=== PATIENT | male | born 1955 | race Hispanic/Latino ===

== ENCOUNTER 2023-12-02 00:30 | Observation (INO) | payer BC ==
[2023-12-02] MEDS ORDERED: PIPERACIL/TAZO 3.375 GM VIAL IV ONE (02:21)
[2023-12-02] MEDS ORDERED: NA CHLORIDE 0.9% 100 ML ONE (02:21)
[2023-12-02 02:39] LABS: Absolute Basophils 0.1 K/uL (0-0.5); Absolute Eosinophils 0.2 K/uL (0-0.5); Absolute Lymphocytes (CBC) 0.9 K/uL (0.7-4.9); Absolute Monocytes 0.5 K/uL (0.1-1.3); Absolute Neutrophil 3.6 K/uL (1.8-8.0); Basophils % 1.6 % (0-1.3); Eosinophils % 4.3 % (0-4.4); Hematocrit 39.5 % (39.6-49.0); Hemoglobin 13.2 g/dL (13.6-17.9); Lymphocytes % 17.6 % (15.3-44.8); MCH 31.1 pg (27.0-35.0); MCHC 33.5 g/dL (32.0-36.0); MPV 7.9 fL (7.6-11.3); Monocytes % 8.8 % (3.3-12.3); Neutrophils % 67.7 % (41.7-73.7); PT Prothrombin Time 11.2 SECONDS (9.4-12.5); Platelets 204 thou/uL (152-406); RBC Red Blood Cell Count 4.24 M/uL (4.33-5.43); Red Cell Distribution Width 13.8 % (12.1-15.2)
[2023-12-02 02:44] LABS: Specific Gravity 1.026 (1.005-1.030); Urine Bilirubin NEGATIVE (Negative); Urine Blood Negative (Negative); Urine Clarity Clear (Clear); Urine Color Light-Yellow (Yellow); Urine Glucose 4+ (Over) (Negative); Urine Ketones NEGATIVE (Negative); Urine Microscopic Reflex YN NO UMIC; Urine Nitrite NEGATIVE (Negative); Urine Protein NEGATIVE (Negative); Urine Urobilinogen Normal (Normal); Urine pH 5.5 (5.0-7.0)
[2023-12-02 02:56] LABS: ALT/SGPT 33 U/L (16-61); AST/SGOT 21 U/L (15-37); Albumin 3.6 g/dL (3.4-5.0); Alkaline Phosphatase 93 U/L (45-117); Anion Gap 13.2 mEq/L (5.0-15.0); BUN Blood Urea Nitrogen 28 mg/dL (7-18); Bicarbonate 25 mEq/L (21-32); Bilirubin Total 0.5 mg/dL (0.2-1.0); Globulin 3.5 g/dL (2.3-3.5); Glomerular Filtration Rate 60 ml/min (=/>90); Glucose Level 108 mg/dL (74-106); NT PRO-BNP 52 pg/mL (<125); Potassium 4.2 mEq/L (3.5-5.1); Protein, Total 7.1 g/dL (6.4-8.2); Sodium Level 140 mEq/L (136-145); Troponin High Sensitivity 7.9 pg/mL (<58.9)
[2023-12-02 02:57] LABS: Bilirubin Direct < 0.2 mg/dL (0-0.2); Bilirubin Indirect, Calculated 0.3 mg/dL (0.2-0.8)
--- NOTE | 2023-12-02 03:00 | ER ---
Nurse's Notes [facility] Name: Elton Paz Age: 68 yrs Sex: Male : 1955 Arrival Date: 12/02/2023 Time: 00:30 Bed 8 Private MD: Diagnosis: Cellulitis of left lower limb;Type 2 diabetes mellitus with hyperglycemia;Synovial cyst of popliteal space [Hackett], left knee Presentation: 12/01 00:48 Chief complaint: Patient states: I was bit on my left leg by some kind of bug. I have a jb4 rash and its been itching. Now I have pain in my knee cap that radiates to my groin, and my left leg is swollen. Coronavirus screen: At this time, the client does not indicate any symptoms associated with coronavirus-19. Ebola Screen: No symptoms or risks identified at this time. Initial Sepsis Screen: Does the patient meet any 2 criteria? No. Patient's initial sepsis screen is negative. Does the patient have a suspected source of infection? No. Patient's initial sepsis screen is negative. Risk Assessment: Do you want to hurt yourself or someone else? Patient reports no desire to harm self or others. Onset of symptoms was December 02, 2023. Transition of care: patient was not received from another setting of care. 00:48 Method Of Arrival: Ambulatory jb4 00:48 Acuity: OSEI 3 jb4 Triage Assessment: 00:49 General: Appears in no apparent distress. comfortable, Behavior is calm, cooperative, jb4 appropriate for age. Pain: Complains of pain in left knee Pain radiates to groin Pain currently is 7 out of 10 on a pain scale. Quality of pain is described as pressure, sharp. EENT: No signs and/or symptoms were reported regarding the EENT system. Neuro: Level of Consciousness is awake, alert, obeys commands, Oriented to person, place, time, situation. Cardiovascular: Patient's skin is warm and dry. Respiratory: Airway is patent Respiratory effort is even, unlabored, Respiratory pattern is regular, symmetrical. Historical: - Allergies: 00:49 No Known Allergies; jb4 - PMHx: 00:49 DM; HTN; High cholesterol; jb4 - PSHx: 00:49 hernia repair; jb4 - Immunization history:: Adult Immunizations up to date. - Infectious Disease History:: Denies. - Social history:: Smoking status: Patient denies any tobacco usage or history of. Screenin:04 [facility] ED Fall Risk Assessment (Adult) History of falling in the last 3 months, pc2 including since admission No falls in past 3 months (0 pts) Confusion or Disorientation No (0 pts) Intoxicated or Sedated No (0 pts) Impaired Gait No (0 pts) Mobility Assist Device Used No (0 pt) Altered Elimination No (0 pt) Score/Fall Risk Level 0 - 2 = Low Risk Oriented to surroundings, Maintained a safe environment, Hourly rounding (assess needs \T\ fall precautionary measures) done. Abuse screen: Denies threats or abuse. Denies injuries from another. Nutritional screening: No deficits noted. Tuberculosis screening: No symptoms or risk factors identified. Assessment: 02:00 General: Appears in no apparent distress. uncomfortable, well groomed, Behavior is pc2 calm, cooperative, appropriate for age. 02:00 Pain: Complains of pain in left bush and left calf and left leg and left knee. Neuro: pc2 Level of Consciousness is awake, alert, obeys commands, Oriented to person, place, time, situation. Cardiovascular: Patient's skin is warm and dry. Respiratory: Airway is patent Trachea midline Respiratory effort is even, unlabored, Respiratory pattern is regular, symmetrical. GI: Abdomen is round non-distended. : No signs and/or symptoms were reported regarding the genitourinary system. : Urine is clear. EENT: No signs and/or symptoms were reported regarding the EENT system. Derm: Skin is dry, Skin is red, Skin temperature is warm redness and swelling to left lower leg. thinks he may have gotten bit by something while in tall wet grass working. warm to touch Reports itching, since 2 days ago. Musculoskeletal: Circulation, motion, and sensation intact. Swelling present in left leg patient is able to bear weight and ambulates with steady gait. 03:00 Reassessment: No changes from previously documented assessment. Patient and/or family pc2 updated on plan of care and expected duration. Pain level reassessed. 04:00 Reassessment: Patient appears in no apparent distress at this time. Patient and/or pc2 family updated on plan of care and expected duration. Pain level reassessed. Patient is alert, oriented x 3, equal unlabored respirations, skin warm/dry/pink. Vital Signs: 00:48 BP 114 / 82; Pulse 72; Resp 16; Temp 98.2(TE); Pulse Ox 96% on R/A; Weight 95.25 kg jb4 (R); Height 5 ft. 9 in. (R); Pain 7/10; 03:30 BP 132 / 93; Pulse 61; Resp 18; Pulse Ox 100% on R/A; pc2 04:30 BP 131 / 83; Pulse 68; Resp 16; Temp 98.2; Pulse Ox 99% on R/A; pc2 00:48 Body Mass Index 31.01 (95.25 kg, 175.26 cm) jb4 00:48 Pain Scale: Adult jb4 ED Course: 00:31 Patient arrived in ED. jj6 00:33 Ramone Munoz MD is Attending Physician. jose eduardo 00:49 Triage completed. jb4 00:49 Arm band placed on right wrist. jb4 01:10 XRAY Chest (1 view) In Process Unspecified. EDMS 01:40 Patient has correct armband on for positive identification. Placed in gown. Bed in low pc2 position. Call light in reach. Side rails up X2. Provided Education on: POC and time frame. 01:43 US Extremity Venous W Compression Mauricio In Process Unspecified. EDMS 01:50 Pulse ox on. NIBP on. pc2 02:02 Dara Hare, RN is Primary Nurse. pc2 02:02 Urinalysis w/ reflexes Sent. pc2 02:02 Blood Culture Adult (2) Sent. pc2 02:02 Lactate w/ 2H reflex if indic. Sent. pc2 02:03 Basic Metabolic Panel Sent. pc2 02:03 CBC with Diff Sent. pc2 02:03 LFT's Sent. pc2 02:03 Magnesium Sent. pc2 02:03 NT PRO-BNP Sent. pc2 02:03 PT-INR Sent. pc2 02:03 Troponin HS Sent. pc2 02:25 EKG done, by ED staff, reviewed by Ramone Munoz MD. oe 02:59 Christie Quintero MD is Hospitalizing Provider. jose eduardo 03:38 No provider procedures requiring assistance completed. pc2 05:39 Patient admitted, IV remains in place. bm8 Administered Medications: 02:22 Drug: Piperacillin-Tazobactam IVPB 3.375 grams IVPB once over 60 mins; (mix in NS 100 pc2 mL) Route: IVPB; Infused Over: 60 mins; Site: right antecubital; 03:00 Follow up: IV Status: Completed infusion; IV Intake: 100ml pc2 03:20 Drug: vancoMYCIN IVPB 1 grams IVPB once over 2 hrs Route: IVPB; Infused Over: 2 hrs; pc2 Site: right antecubital; 03:50 Follow up: Response: No adverse reaction; IV Status: Completed infusion; IV Intake: pc2 250ml 03:20 Drug: Lovenox Sub-Q 40 mg Sub-Q once Route: Sub-Q; Site: right lower abdomen; pc2 03:50 Follow up: Response: No adverse reaction pc2 03:28 Drug: diphenhydrAMINE IVP 25 mg IVP once Route: IVP; Site: right antecubital; pc2 03:50 Follow up: Response: No adverse reaction; Marked relief of symptoms pc2 04:40 Drug: vancoMYCIN IVPB 1 grams IVPB once over 2 hrs Route: IVPB; Infused Over: 2 hrs; pc2 Site: right antecubital; 05:38 Follow up: Response: No adverse reaction; IV Status: Infusion continued upon admission; bm8 IV Intake: 100ml Medication: 03:43 VIS not applicable for this client. pc2 Intake: 03:00 IV: 100ml; Total: 100ml. pc2 03:50 IV: 250ml; Total: 350ml. pc2 05:38 IV: 100ml; Total: 450ml. bm8 Outcome: 03:00 Decision to Hospitalize by Provider. jose eduardo 05:37 Patient left the ED. 8 05:37 Admitted to Med/surg accompanied by nurse, via wheelchair, room 210, with chart, [facility] 05:37 Condition: stable 05:37 Instructed on follow up and referral plans. the need for admit, Demonstrated understanding of instructions, follow-up care, medications, Signatures: Dispatcher [employer] EDMS Ramone Munoz MD MD cha Bryson, James, RN RN jb4 Ruy Perez Jennifer jj6 Crow Colbert, RN RN bm8 Dara Hare, RN RN pc2
--- NOTE | 2023-12-02 03:00 | EDPHYS ---
Physician Documentation [facility] Name: Elton Paz Age: 68 yrs Sex: Male : 1955 Arrival Date: 12/02/2023 Time: 00:30 Bed 8 Private MD: Ramone Camara HPI: 12/01 02:54 This 68 yrs old Male presents to ER via Ambulatory with complaints of Leg jose eduardo Swelling, Leg Pain, LEG REDNESS, Fever. 02:54 The patient presents with decreased range of motion, pain, swelling, tenderness. The jose eduardo complaints affect the lateral aspect of left calf, left calf, medial aspect of left calf and left bush. Context: The problem was sustained at home, resulted from bites, the patient can fully bear weight, the patient is able to ambulate. Historical: - Allergies: 00:49 No Known Allergies; jb4 - PMHx: 00:49 DM; HTN; High cholesterol; jb4 - PSHx: 00:49 hernia repair; jb4 - Immunization history:: Adult Immunizations up to date. - Infectious Disease History:: Denies. - Social history:: Smoking status: Patient denies any tobacco usage or history of. ROS: 02:55 Constitutional: Negative for fever, chills, and weight loss, Eyes: Negative for injury, jose eduardo pain, redness, and discharge, ENT: Negative for injury, pain, and discharge, Neck: Negative for injury, pain, and swelling, Cardiovascular: Negative for chest pain, palpitations, and edema, Respiratory: Negative for shortness of breath, cough, wheezing, and pleuritic chest pain, Abdomen/GI: Negative for abdominal pain, nausea, vomiting, diarrhea, and constipation, Back: Negative for injury and pain, : Negative for injury, bleeding, discharge, and swelling, Neuro: Negative for headache, weakness, numbness, tingling, and seizure, Psych: Negative for depression, anxiety, suicide ideation, homicidal ideation, and hallucinations, Allergy/Immunology: Negative for hives, rash, and allergies, Endocrine: Negative for neck swelling, polydipsia, polyuria, polyphagia, and marked weight changes, Hematologic/Lymphatic: Negative for swollen nodes, abnormal bleeding, and unusual bruising, 02:55 MS/extremity: Positive for decreased range of motion, erythema, pain, swelling, tenderness, of the left leg, 02:55 Skin: Positive for cellulitis, swelling, of the left leg, diffusely, Exam: 02:58 Constitutional: This is a well developed, well nourished patient who is awake, alert, jose eduardo and in no acute distress. Head/Face: Normocephalic, atraumatic. Eyes: Pupils equal round and reactive to light, extra-ocular motions intact. Lids and lashes normal. Conjunctiva and sclera are non-icteric and not injected. Cornea within normal limits. Periorbital areas with no swelling, redness, or edema. ENT: Nares patent. No nasal discharge, no septal abnormalities noted. Tympanic membranes are normal and external auditory canals are clear. Oropharynx with no redness, swelling, or masses, exudates, or evidence of obstruction, uvula midline. Mucous membranes moist. Neck: Trachea midline, no thyromegaly or masses palpated, and no cervical lymphadenopathy. Supple, full range of motion without nuchal rigidity, or vertebral point tenderness. No Meningismus. Chest/axilla: Normal chest wall appearance and motion. Nontender with no deformity. No lesions are appreciated. Cardiovascular: Regular rate and rhythm with a normal S1 and S2. No gallops, murmurs, or rubs. Normal PMI, no JVD. No pulse deficits. Respiratory: Lungs have equal breath sounds bilaterally, clear to auscultation and percussion. No rales, rhonchi or wheezes noted. No increased work of breathing, no retractions or nasal flaring. Abdomen/GI: Soft, non-tender, with normal bowel sounds. No distension or tympany. No guarding or rebound. No evidence of tenderness throughout. Back: No spinal tenderness. No costovertebral tenderness. Full range of motion. Male : Normal genitalia with no discharge or lesions. Neuro: Awake and alert, GCS 15, oriented to person, place, time, and situation. Cranial nerves II-XII grossly intact. Motor strength 5/5 in all extremities. Sensory grossly intact. Cerebellar exam normal. Normal gait. Psych: Awake, alert, with orientation to person, place and time. Behavior, mood, and affect are within normal limits. 02:58 ECG was reviewed by the Attending Physician. Vital Signs: 00:48 BP 114 / 82; Pulse 72; Resp 16; Temp 98.2(TE); Pulse Ox 96% on R/A; Weight 95.25 kg jb4 (R); Height 5 ft. 9 in. (R); Pain 7/10; 03:30 BP 132 / 93; Pulse 61; Resp 18; Pulse Ox 100% on R/A; pc2 04:30 BP 131 / 83; Pulse 68; Resp 16; Temp 98.2; Pulse Ox 99% on R/A; pc2 00:48 Body Mass Index 31.01 (95.25 kg, 175.26 cm) jb4 00:48 Pain Scale: Adult jb4 MDM: 00:33 Patient medically screened. [facility] 02:56 Differential diagnosis: contusion, tendonitis. Data reviewed: vital signs, nurses [facility] notes, lab test result(s), EKG, radiologic studies, doppler, plain films. Consideration of Admission/Observation Patient was admitted/placed on observation. Escalation of care including admission/observation considered. I considered the following discharge prescriptions or medication management in the emergency department Medications were administered in the Emergency Department. See MAR. Independent interpretation of the following test(s) in the Emergency Department EKG: See my EKG interpretation above. Test considered but Not performed: MRI: no mri. Historians other than the Patient: pt well informed. Care significantly affected by the following chronic conditions: Diabetes, Hypertension, Obesity, high cholesterol. Counseling: I had a detailed discussion with the patient and/or guardian regarding the historical points, exam findings, and any diagnostic results supporting the discharge/admit diagnosis, lab results, radiology results, the need for further work-up and treatment in the hospital. 12/01 00:35 Order name: Basic Metabolic Panel; Complete Time: 02:59 [facility] 12/01 00:35 Order name: CBC with Diff; Complete Time: 02:53 [facility] 12/01 00:35 Order name: LFT's; Complete Time: 02:59 [facility] 12/01 00:35 Order name: Magnesium; Complete Time: 02:59 [facility] 12/01 00:35 Order name: NT PRO-BNP; Complete Time: 02:59 [facility] 12/01 00:35 Order name: PT-INR; Complete Time: 02:53 [facility] 12/01 00:35 Order name: Troponin HS; Complete Time: 02:59 [facility] 12/01 00:35 Order name: Lactate w/ 2H reflex if indic.; Complete Time: 02:59 [facility] 12/01 00:35 Order name: Blood Culture Adult (2) [facility] 12/01 00:35 Order name: Urinalysis w/ reflexes; Complete Time: 02:53 [facility] 12/01 05:06 Order name: Urinalysis w/ reflexes EDIA 12/01 05:06 Order name: CBC with Automated Diff EDMS 12/01 05:06 Order name: CBC with Automated Diff EDMS 12/01 05:06 Order name: Comprehensive Metabolic Panel EDIA 12/01 05:06 Order name: Comprehensive Metabolic Panel EDIA 12/01 00:35 Order name: XRAY Chest (1 view) [facility] 12/01 00:35 Order name: US Extremity Venous W Compression Mauricio [facility] 12/01 00:35 Order name: EKG; Complete Time: 00:35 [facility] 12/01 00:35 Order name: Cardiac monitoring; Complete Time: 02:02 [facility] 12/01 00:35 Order name: EKG - Nurse/Tech; Complete Time: 02:26 [facility] 12/01 00:35 Order name: IV Saline Lock; Complete Time: 02:02 [facility] 12/01 00:35 Order name: Labs collected and sent; Complete Time: 02:02 [facility] 12/01 00:35 Order name: O2 Per Protocol; Complete Time: 02:02 [facility] 12/01 00:35 Order name: O2 Sat Monitoring; Complete Time: 02:03 [facility] EC:58 Rate is 60 beats/min. Rhythm is regular. QRS [place] is Normal. [place] interval is normal. QRS jose eduardo interval is normal. QT interval is normal. No Q waves. T waves are Normal. No ST changes noted. Clinical impression: NSR w/ Non-specific ST/T Changes and No evidence of ischemia. Interpreted by me. Reviewed by me. Administered Medications: 02:22 Drug: Piperacillin-Tazobactam IVPB 3.375 grams IVPB once over 60 mins; (mix in NS 100 pc2 mL) Route: IVPB; Infused Over: 60 mins; Site: right antecubital; 03:00 Follow up: IV Status: Completed infusion; IV Intake: 100ml pc2 03:20 Drug: vancoMYCIN IVPB 1 grams IVPB once over 2 hrs Route: IVPB; Infused Over: 2 hrs; pc2 Site: right antecubital; 03:50 Follow up: Response: No adverse reaction; IV Status: Completed infusion; IV Intake: pc2 250ml 03:20 Drug: Lovenox Sub-Q 40 mg Sub-Q once Route: Sub-Q; Site: right lower abdomen; pc2 03:50 Follow up: Response: No adverse reaction pc2 03:28 Drug: diphenhydrAMINE IVP 25 mg IVP once Route: IVP; Site: right antecubital; pc2 03:50 Follow up: Response: No adverse reaction; Marked relief of symptoms pc2 04:40 Drug: vancoMYCIN IVPB 1 grams IVPB once over 2 hrs Route: IVPB; Infused Over: 2 hrs; pc2 Site: right antecubital; 05:38 Follow up: Response: No adverse reaction; IV Status: Infusion continued upon admission; bm8 IV Intake: 100ml Disposition Summary: 12/02/23 03:00 Hospitalization Ordered Notes: Hospitalization Status: Inpatient Admission jose eduardo Provider: Christie Quintero cha Location: Telemetry/MedSurg (Inpatient) jose eduardo Condition: Fair jose eduardo Problem: new jose eduardo Symptoms: have improved jose eduardo Bed/Room Type: Standard [facility] Room Assignment: 210(12/02/23 04:30) cg Diagnosis - Cellulitis of left lower limb jose eduardo - Type 2 diabetes mellitus with hyperglycemia jose eduardo - Synovial cyst of popliteal space [Hackett], left knee jose eduardo Forms: - Medication Reconciliation Form jose eduardo - SBAR form jose eduardo - Leadership Thank You Letter jose eduardo Signatures: Dispatcher [employer] Ramone Montes De Oca MD MD cha Garcia, Cindy, RN RN cg Jovanny Rodriguez RN RN jb4 Dara Hare RN RN pc2 Crow Colbert RN bm8 Corrections: (The following items were deleted from the chart) 04:30 03:00 jose eduardo
[2023-12-02] MEDS ORDERED: ENOXAPARIN 40 MG/0.4 ML SQ ONE (03:01)
[2023-12-02] MEDS ORDERED: NA CHLORIDE 0.9% 250 ML ONE ×2 (03:01→04:48)
[2023-12-02] MEDS ORDERED: VANCOMYCIN 1 GM/VIAL ONE ×2 (03:01→04:48)
[2023-12-02] MEDS ORDERED: DIPHENHYDRAMINE 50 MG/ML VIAL ONE (03:26)
--- NOTE | 2023-12-02 04:53 | P.HP ---
Certification for Inpatient Patient admitted to: Observation With expected LOS: <2 Midnights Practitioner: I am a practitioner with admitting privileges, knowledge of patient current condition, hospital course, and medical plan of care. Services: Services provided to patient in accordance with Admission requirements found in Title 42 Section 412.3 of the Code of Federal Regulations Patient History Date of Service: 12/02/23 Reason for admission: leg swelling History of Present Illness: 68-year-old male with history of diabetes, hypertension, hyperlipidemia presented to the ER with complaints of 2-day history of progressive leg swelling and erythema. He reports he was working outside. Concern for bug bites. He states he had increased swelling and discomfort. He describes his pain as 7 out of 10. In the ER he had an ultrasound done which was negative for DVT. He has been started empirically on antibiotics. He is being admitted for IV antibiotics. Allergies No Known Allergies Allergy (Unverified 12/02/23 03:39) Review of Systems 10-point ROS is otherwise unremarkable Eyes: Unremarkable ENT: Unremarkable Respiratory: Unremarkable Cardiovascular: Unremarkable Gastrointestinal: Unremarkable Genitourinary: Unremarkable Musculoskeletal: Leg Pain Integumentary: Rash, Lesions Physical Examination - Physical Exam General: Alert, Oriented x3 HEENT: Atraumatic, Normocephalic Neck: Supple Respiratory: Clear to auscultation bilaterally Cardiovascular: No edema Gastrointestinal: Normal bowel sounds, No tenderness Musculoskeletal: Other Integumentary: Other (Left leg swelling with tenderness multiple lesions noted with erythema and warmth) - Studies Laboratory Data (last 24 hrs) 12/02/23 12/02/23 12/02/23 01:50 01:50 01:50 WBC 5.40 Hgb 13.2 L Hct 39.5 L Plt Count 204 PT 11.2 INR 1.00 Sodium 140 Potassium 4.2 BUN 28 H Creatinine 1.29 Glucose 108 H Magnesium 2.0 Total Bilirubin 0.5 AST 21 ALT 33 Alkaline Phosphatase 93 Assessment and Plan - Problems (Diagnosis) (1) Cellulitis Current Visit: Yes Status: Acute - Plan 68-year-old male presents with 2-day history of leg redness and swelling Cellulitis left leg suspected insect bite History of diabetes History of hypertension History of hyperlipidemia Plan: Admit for observation Continue IV vancomycin and Rocephin Fingerstick blood sugars, sliding scale insulin Await home medication reconciliation DVT: Lovenox Code leg swelling: Full - Advance Directives Does patient have a Living Will: No Does patient have a Durable POA for Healthcare: No
[2023-12-02] MEDS ORDERED: ACETAMINOPHEN 325 MG TABLET PO PRN (04:55)
[2023-12-02] MEDS ORDERED: D10W 125 ML IV PRN (05:00)
[2023-12-02] MEDS ORDERED: GLUCAGON 1 MG/VIAL IM PRN (05:00)
[2023-12-02 05:46] VITALS: BMI 32.4
[2023-12-02] MEDS ORDERED: VANCOMYCIN 1 GM in NA CHLORIDE 0.9% 250 ML IVPB SCH (06:00)
[2023-12-02 06:13] VITALS: O2SAT 96
[2023-12-02] MEDS: INSULIN REGULAR (HUMAN) 100 UNIT/ML SQ SCH (07:30)
[2023-12-02] MEDS: VALSARTAN 160 MG TAB PO SCH (08:12)
[2023-12-02] MEDS: ATORVASTATIN 80 MG TAB PO SCH (08:13)
[2023-12-02] MEDS: CEFTRIAXONE 1,000 MG in NA CHLORIDE 0.9% 50 ML IVPB SCH (08:13)
[2023-12-02 08:14] VITALS: BP 148/78
--- NOTE | 2023-12-02 08:35 | P.DS ---
Admission Date: 12/02/23 Discharge Date: 12/02/23 Disposition: ROUTINE DISCHARGE Discharge Condition: FAIR Reason for Admission: leg swelling - Problems (1) Insect bite Status: Acute (2) Allergic reaction Status: Acute (3) Cellulitis Status: Acute Brief History of Present Illness: 68-year-old male with history of diabetes, hypertension, hyperlipidemia presented to the ER with complaints of 2-day history of progressive leg swelling, redness and itching. He reports he was working outside and he feels he was bitten by a bugs. In the ER venous Doppler of the lower extremity showed no DVT. He has been started empirically on antibiotics and hospitalized for further management. Hospital Course: Patient was treated with IV antibiotics. He also received antihistamine for allergic reaction. Patient's left leg swelling erythema significantly improved with treatment. On examination I noted spots of erythematous papules to suggest multiple insect bites with associated allergic reaction. Patient is deemed clinically stable. He has no leukocytosis and has been afebrile, he is discharged with oral antibiotics and a short course prednisone therapy as well as an antihistamine. Vital Signs/Physical Exam: Temp Pulse Resp BP Pulse Ox 97.3 F 70 18 148/78 H 98 12/02/23 05:44 12/02/23 08:12 12/02/23 05:44 12/02/23 08:12 12/02/23 05:44 General: Alert, In no apparent distress, Oriented x3 HEENT: Mucous membr. moist/pink Neck: JVD not distended Respiratory: Clear to auscultation bilaterally, Normal air movement Cardiovascular: No edema, Regular rate/rhythm, Normal S1 S2 Gastrointestinal: Soft and benign, Non-distended, No tenderness Musculoskeletal: Swelling (Mild left leg swelling) Integumentary: Other (Spots of erythematous papules left leg patient and distal aspect of anterior thigh.) Neurological: Normal speech, Normal strength at 5/5 x4 extr Laboratory Data at Discharge: WBC 5.40 thou/uL (4.3-10.9) 12/02/23 01:50 Hgb 13.2 g/dL (13.6-17.9) L 12/02/23 01:50 Hct 39.5 % (39.6-49.0) L 12/02/23 01:50 Plt Count 204 thou/uL (152-406) 12/02/23 01:50 PT 11.2 SECONDS (9.4-12.5) 12/02/23 01:50 INR 1.00 12/02/23 01:50 Sodium 140 mEq/L (136-145) 12/02/23 01:50 Potassium 4.2 mEq/L (3.5-5.1) 12/02/23 01:50 BUN 28 mg/dL (7-18) H 12/02/23 01:50 Creatinine 1.29 mg/dL (0.70-1.30) 12/02/23 01:50 Glucose 108 mg/dL (74-106) H 12/02/23 01:50 Magnesium 2.0 mg/dL (1.6-2.4) 12/02/23 01:50 Total Bilirubin 0.5 mg/dL (0.2-1.0) 12/02/23 01:50 AST 21 U/L (15-37) 12/02/23 01:50 ALT 33 U/L (16-61) 12/02/23 01:50 Alkaline Phosphatase 93 U/L (45-117) 12/02/23 01:50 Home Medications: Amox/Clavulanate [Augmentin 875-125 Tab] 1 each PO BID #10 tab 12/02/23 Atorvastatin Calcium [Lipitor] 80 mg PO DAILY 12/02/23 Codeine/APAP [Tylenol W/Codeine #3 tab] 1 tab PO Q6HP PRN #20 tab 12/02/23 Dapagliflozin/Metformin HCl [Xigduo Xr 10 mg-1,000 mg Tab] 1 each PO DAILY 12/02/23 Diphenhydramine [Benadryl Tab/Cap] 25 mg PO Q6HP PRN #30 tab 12/02/23 Methylprednisolone [Medrol dosepack] 4 mg PO DIRECTED #1 tom 12/02/23 Valsartan [Diovan*] 160 mg PO DAILY 12/02/23 New Medications: Diphenhydramine [Benadryl Tab/Cap] 25 mg PO Q6HP PRN #30 tab PRN Reason: Itching Codeine/APAP [Tylenol W/Codeine #3 tab] 1 tab PO Q6HP PRN #20 tab PRN Reason: Pain Amox/Clavulanate [Augmentin 875-125 Tab] 1 each PO BID #10 tab Methylprednisolone [Medrol dosepack] 4 mg PO DIRECTED #1 tom Diet: AHA Activity: Ad terri Followup: Tomi Kim MD [Primary Care Provider] - 1-2 Weeks Time spent managing pt's care (in minutes): 26
[2023-12-02] MEDS: DAPAGLIFLOZIN PO SCH (08:38)
[2023-12-02] MEDS: METFORMIN HCL PO SCH (08:38)
[2023-12-02] MEDS: [UNRECOGNIZED DRUG - OTHER] PO SCH (08:38)
[2023-12-02] MEDS: DIPHENHYDRAMINE 25 MG TAB/CAP PO ONE (08:46)
[2023-12-02] MEDS ORDERED: ENOXAPARIN 40 MG/0.4 ML SQ SCH ×2 (09:00→21:00)
[2023-12-02 09:55] VITALS: TEMP 96.8
--- NOTE | 2023-12-02 12:07 | EKG ---
Test Date: 2023-12-02 Test Time: 02:20:54 Clinical Consultant: ASHLEY MEASUREMENT RESULTS: Intervals: Rate: 60 AK: 186 QRSD: 92 QT: 426 QTc: 426 [place]: P: 50 AK: 186 QRS: -18 T: 14 INTERPRETIVE STATEMENTS: Normal sinus rhythm Minimal voltage criteria for LVH, may be normal variant Borderline ECG Compared to ECG 05/17/2013 08:33:19 No significant changes Electronically Signed On 12-02-23 12:05:53 CDT by Neil Hooper
--- NOTE | 2023-12-02 15:48 | RAD REPORT ---
EXAM DESCRIPTION: Extrem Venous W Compress Mauricio CLINICAL HISTORY: 68 years Male Pain;Swelling COMPARISON: None TECHNIQUE: Real-time and Doppler sonography of the venous systems of the lower extremities was perfo rmed bilaterally. Grayscale, color, and spectral analysis was utilized. FINDINGS: No intraluminal thrombus is seen at any level. Satisfactory compressibility all levels. 2.5 x 2.6 x 2.2 cm popliteal cyst on left. No evidence for popliteal cyst on the right. IMPRESSION: No sonographic evidence for deep venous thrombosis involving the lower extremities bilat erally. 2.6 cm left popliteal cyst. Electronically signed by: Lissa Hwang MD 12/02/2023 03:06 AM CDT RP Due to temporary technical issues with the PACS/Fluency reporting system, reports are being signed by the in house radiologist without review as a courtesy to ensure prompt reporting. The interpreting r adiologist is fully responsible for the content of the report.
--- NOTE | 2023-12-02 15:48 | RAD REPORT ---
EXAM DESCRIPTION: Chest Single View CLINICAL HISTORY: COUGH COMPARISON: None FINDINGS: Cardiac silhouette is within normal limits. There is no focal parenchymal or pleural disea se. There is no acute osseous process visualized. IMPRESSION: No evidence of acute cardiopulmonary disease. Electronically signed by: Pasha Finn MD 12/02/2023 02:30 AM CDT RP Due to temporary technical issues with the PACS/Fluency reporting system, reports are being signed by the in house radiologist without review as a courtesy to ensure prompt reporting. The interpreting r adiologist is fully responsible for the content of the report.
[2023-12-03] MEDS ORDERED: VANCOMYCIN 1.75 GM in NA CHLORIDE 0.9% 500 ML IVPB SCH (04:00)
== END 2023-12-02 10:10 | disposition home or self-care (01) ==
LOC: ER 00:30 → 2ND 04:55
PROVIDERS: ADMIT Internal Medicine; ATTEND Internal Medicine
DX: S80.862A Insect bite (nonvenomous), left lower leg, initial encounter (principal); T78.49XA Other allergy, initial encounter; L03.116 Cellulitis of left lower limb; E11.65 Type 2 diabetes mellitus with hyperglycemia; M71.22 Synovial cyst of popliteal space [Baker], left knee; I10 Essential (primary) hypertension; E78.00 Pure hypercholesterolemia, unspecified; E78.5 Hyperlipidemia, unspecified; W57.XXXA Bitten or stung by nonvenomous insect and other nonvenomous arthropods, initial encounter; Y93.H9 Activity, other involving exterior property and land maintenance, building and construction; Y92.017 Garden or yard in single-family (private) house as the place of occurrence of the external cause; Y99.9 Unspecified external cause status
CPT/HCPCS: 36415; 71045; 80048; 80076; 81003; 82947; 83605; 83735; 83880; 84484; 85025; 85610; 87040; 93005; 93970; 96365; 96367; 96372; 96375; 99285; G0378; J0696; J1200; J1650; J2543; J7050